=== PATIENT | female | born 1945 | race Caucasian/White ===

== ENCOUNTER → 2023-07-16 07:39 | Outpatient (REF) | payer OTHER, SELFPAY | LOC: RAD 07:39 | PROVIDERS: ATTENDING PHYSICIAN Internal Medicine Critical Care Medicine; FAMILY PHYSICIAN Internal Medicine | DX: D86.9 Sarcoidosis, unspecified (principal); R91.8 Other nonspecific abnormal finding of lung field | CPT/HCPCS: 71250 ==

== ENCOUNTER → 2024-04-12 07:53 | Outpatient (REF) | payer OTHER, SELFPAY | LOC: WDC 07:53 | PROVIDERS: ATTENDING PHYSICIAN Family Medicine | DX: I35.8 Other nonrheumatic aortic valve disorders (principal); Z12.31 Encounter for screening mammogram for malignant neoplasm of breast | CPT/HCPCS: 93306 ==

== ENCOUNTER → 2024-08-21 11:31 | Outpatient (REF) | payer OTHER, SELFPAY | LOC: RAD 11:31 | PROVIDERS: ATTENDING PHYSICIAN Family Medicine | DX: R10.30 Lower abdominal pain, unspecified (principal); R19.7 Diarrhea, unspecified; Z86.16 Personal history of COVID-19 | CPT/HCPCS: 74177; Q9967 ==

== ENCOUNTER 2025-05-23 20:22 | Inpatient (IN) | payer OTHER, SELFPAY ==
[2025-05-23] VITALS (10 sets, daily range): BP systolic 118–162; BP diastolic 54–106; BMI 27.8; BMI 24.9
--- NOTE | 2025-05-23 17:16 | ED.GENMED ---
History of Present Illness
General
Chief Complaint: Fall
Source: patient
Exam Limitations: none
Time Seen by Provider: 05/23/25 16:41
Nursing documentation reviewed up to this point in time: agreed with
History of Present Illness
History of Present Illness:
Patient is a 79-year-old female with history hypertension who presents to the emergency department for evaluation following fall. Patient states that she was walking into her home tonight carrying multiple bags of groceries when she fell backwards
onto her left hip. She is adamant that she did not strike her head or lose consciousness. She did not feel lightheaded, dizzy, or faint prior to fall.
Fortunately, patient was able to get herself up and into the house where she put her groceries away. However�she reports significant pain in her left hip and difficulty ambulating. She contacted her friends who called [phone] for transportation to the
emergency department.
Patient denies any numbness/tingling in left lower extremity. She specifically denies any headache, neck pain, back pain, pain in upper extremities.
She is not on any oral anticoagulation.
Past History
Past History
ED Past Medical History: GERD, HTN and Other (Kidney stones, vasciulitis); Negative CHF or CVA
ED Past Surgical History: Other (s/p partial colectomy for 'twisted bowel' october 2015 w/ Dr Olivares)
Social History
Tobacco: Non-smoker
Alcohol: None
Drug: None
Living: with family (friend)
Employment: Retired
Family History
Family History: Negative CAD
Review of Systems
Review of Systems
Allergies reviewed?: Yes
All Other Systems: ROS reviewed and negative except as documented in HPI and ROS
Phy Exam
Physical Exam
Physical Exam:
Vitals: Hypertensive, otherwise vital signs stable. Afebrile
General: Patient is well appearing, no acute distress. No evidence of traumatic injury.
Skin: Warm and dry, no rashes or lesions
Head: Normocephalic, atraumatic. No external evidence of trauma
Eyes: Sclera nonicteric. EOMs intact. No nystagmus.
Throat: Protecting airway
Neck: Normal ROM, no cervical spine tenderness, no meningismus
Cardiac: Regular rate and rhythm, no murmurs.
Pulm: Normal respiratory effort. Lungs clear bilaterally
.
Abdomen: No abdominal tenderness.
Extremities: No obvious deformity of left lower extremity. Reproducible tenderness in left inguinal region/left hip. No bony tenderness of left knee or left ankle. Limited internal/external rotation of left hip secondary to pain.
Neuro: AAOx3. Grossly intact.
Psychiatric: Normal affect.
Course
Orders/Labs/Results
Orders:
Orders
05/23/25 Breakfast
Regular
At Your Request: Full Participation
05/23/25 15:20
Hip, Left 2-3 Views [CR Hip - LT w/wo Pel 2-3 Vw*] Urgent
Comment:
Reason For Exam: fall
Include a pelvis x-ray?: Yes
05/23/25 18:28
Morphine Sulfate 2 mg IV NOW STA
05/23/25 18:36
Lower Ext Left wo Contrast CT [CT Lower Ext W/o Iv Cont Lt] Urgent
Comment: per ortho
Reason For Exam: Left femoral neck fracture
05/23/25 18:43
Basic Metabolic Panel Urgent
Complete Blood Count/With Diff Urgent
05/23/25 19:39
CXR Port [CR Chest Portable - 1 View] Urgent
Comment:
Reason For Exam: Pre-op, Hypoxemia
Reason Study Needs to be Portable: Unable to Transport
05/23/25 19:40
Admit/Transfer Patient As Directed
Co-Sign Provider:
Level of Care: Inpatient admission
Assign to:: Medical/Surgical
Physician / Group: Luis Felipe
Diagnosis: L Hip Fracture
Reason for Hospitalization: L Hip Fracture
Expected length of stay greater than two midnights?: Yes
ELOS- Estimated Length of Stay in days: 3
I certify the patient meets the requirements for IP care: Yes
PRN Pain Medication Management As Directed
May give lesser potent ordered pain med per pt: Yes
preference::
Protocol:: Medication orders for pain may be administered in a
manner that supports deferring to patient preference
when the pt is:
- Requesting an ordered lesser potent pain medication.
Least to most potent pain medications are defined
as: acetaminophen < NSAID < tramadol < opioids
(morphine, oxycodone, hydromorphone).
- Requesting a lesser dose of the same medication IF
ORDERED.
- Requesting a less intrusive route of administration
if both routes are prescribed by the provider (PO <
IV).
05/23/25 19:41
Code Status As Directed
Resuscitation Status: Full Code
05/23/25 20:47
Urinalysis Reflex To Culture Urgent
Date Specimen was Collected: 05/23/25
Time Specimen was Collected: 20:19
Urine Microscopic Reflex Cult Urgent
05/23/25 21:54
Albuterol Nebs [Ventolin Nebules] 2.5 mg INH R Q4HPRN PRN
HYDROmorphone [Dilaudid] 0.5 mg IV Q4HPRN PRN
05/23/25 21:54
ORTHOPEDIC CONSULT Routine
Consulting Provider: Cortney Irizarry I.
Was physician already notified: Yes
Reason for consult: L Hip Fracture
Activity As Directed
Activity Level: Bedrest
Bladder Scan As Directed
Follow Bladder Retention/Intermittent Cath Algorithm?: Yes
PRN if no void in __ hours: 6
Frequency: Per Retention Algorithm
If Bladder Scan Result >: 400
then:: Straight cath
I/O [Intake/ Output] As Directed
Frequency: Per unit guidelines
Pneumatic Compression Sleeves As Directed
Type: Knee high
Straight Cath As Directed
Frequency: Per Retention Algorithm
Additional Instructions: straight cath as needed per acute urinary retention algorithm for 24 hrs
Additional Instructions: for bladder scan greater than 400 mL
Vital Signs As Directed
Frequency: Per unit guidelines
Oxygen Therapy [O2 Therapy] [RESP] Routine
Titrate/Wean O2 to maintain O2 sat greater than (%): 94
DX Deep Vein Thrombosis Video Routine
05/23/25 22:00
Acetaminophen [Tylenol] 1,000 mg PO TID
05/24/25 Breakfast
NPO
Allow oral meds: Yes
Allow clear liquids: Sips of Clears
NPO for procedure after (time): Midnight
05/24/25 06:35
Basic Metabolic Panel IN AM
Complete Blood Count/No Diff IN AM
05/24/25 08:00
Cholecalciferol (Vitamin D3) [VITAMIN D3 (cholecalciferol)] 25 mcg PO DAILY
Losartan [Cozaar] 50 mg PO DAILY
Venlafaxine Extended Release [Effexor Xr] 37.5 mg PO DAILY
05/24/25 18:00
Bisoprolol Fumarate [Zebeta] 10 mg PO QPM
Abnormal Lab Results
05/23/25
18:43
WBC 16.7 H 10^3/uL
(4.8-10.8)
Abs Immat Gran (auto) 0.1 H 10^3/uL
(0-0.05)
Absolute Neuts (auto) 14.5 H 10^3/uL
(1.4-6.5)
Absolute Lymphs (auto) 1.1 L 10^3/uL
(1.2-3.4)
Absolute Monos (auto) 0.8 H 10^3/uL
(0.1-0.6)
Neutrophils % 87.3 H %
(42.2-75.2)
Lymphocytes % 6.8 L %
(20.5-51.1)
BUN 22 H mg/dl
(7-17)
Glucose 117 H mg/dl
(70-99)
05/23/25 18:43
05/23/25 18:43
Vital Signs
Initial and Last Documented VS:
Initial Vital Signs
Temp Pulse Resp BP Pulse Ox
98.3 F 65 16 130/99 94
05/23/25 15:16 05/23/25 15:16 05/23/25 15:16 05/23/25 15:16 05/23/25 15:16
Last Documented Vital Signs
Temp Pulse Resp BP Pulse Ox
99.1 F 68 16 134/58 91
05/24/25 07:00 05/24/25 07:53 05/24/25 07:00 05/24/25 07:53 05/24/25 07:00
MDM/Problems Addressed
Differential Diagnosis Includes:
Not limited to: Hip fracture, pelvic fracture, hip dislocation, pelvic contusion, femur fracture, etc.
MDM/Problems Addressed:
79 year old female with left hip fracture following fall this evening. No concerning prodrome to fall - seems mechanical in nature. No head strike or other associated injuries. Vitals as above. On exam - patient appears well in no distress. No
evidence of head or neck trauma. General tenderness in area of left hip/ left inguinal crease without obvious deformity of LLE.
Xray of left hip reveals femoral neck fracture. Discussed with orthopedics, Dr Irizarry, who recommends admission to hospitalist service, NPO at midnight for OR tomorrow. Plan discussed with patient. All questions answered.
Patient accepted to hospitalist service. Basic labs pending.
Chronic conditions affecting care:
Hypertension
Acute Exacerbation and/or Progression of Chronic Illness:
Acutely hypertensive
*Radiology
Radiology exam reviewed: preliminary read by ED provider (Left hip x-ray reviewed by me-femoral neck fracture) and radiology read reviewed
*Pulse Oximetry
SaO2: 94
Oxygen Mode of Delivery: Room air
Patient hypoxic: no
*EKG
Interpreted by ED Provider?: NA
*Dicer Operator Interpretation
Rate: Dicer Operator- N/A
*Critical Care Note
Total Time (30-74mins, 75-104mins- exclusive of procedures): Not Applicable
Patient Management
Discussion with other providers: Hospitalist and Research Tech (Case discussed with orthopedics)
ED Attending Note
-
Portions of this chart may have been created with voice recognition software.� Occasional wrong word or��sound alike� substitutions may have occurred due to the inherent limitations of voice recognition software.
Discharge Plan
Departure
Patient Disposition: Admit
Date of Disposition: 05/23/25
Time of Disposition: 18:29
Presentation/result/management discussed w/ accepting MD/DO: Hospitalist
Discharge Problem:
Fracture of left hip
Interventions
Interventions:
*Risk Screen - Suicide Last Done: 05/23/25 15:16
*General Assessment Last Done: 05/23/25 15:16
*Neglect/Abuse Screening Last Done: 05/23/25 15:16
*ED COVID-19 Vaccine History Last Done: 05/23/25 21:05
*ED Influenza Vaccine History Last Done: 05/23/25 21:05
[facility] Fall Risk Assessment Tool Last Done: 05/23/25 18:09
*Nursing Disposition Last Done: 05/23/25 21:16
ED-Musculoskeletal Assessment Last Done: 05/23/25 21:07
ED- Neurological Assessment Last Done: 05/23/25 21:07
ED-Skin Assessment Last Done: 05/23/25 21:07
Discharge Date and Time
Discharge Date/Time: 05/23/25 21:17
[2025-05-23] MEDS: MORPHINE SULFATE 2 MG IV (18:48)
[2025-05-23 18:50] LABS: Hematocrit 45.8 % (37.0-47.0); Hemoglobin 15.1 g/dL (12.0-16.0); Mean Corp Hgb Conc. 33.0 g/dL (33.0-37.0); Mean Corpuscular Volume 92.2 fL (81.0-99.0); Nucleated Red Blood Cells % 0 %; Platelet Count 267 10^3/uL (130-400); Red Cell Dist. Width 12.3 % (11.5-14.5)
[2025-05-23 19:08] LABS: Blood Urea Nitrogen 22 mg/dl (7-17); Calcium 9.5 mg/dl (8.4-10.2); Carbon Dioxide 30 mmol/L (22-30); Chloride 101 mmol/L (98-107); Glucose 117 mg/dl (70-99); Potassium 4.0 mmol/L (3.5-5.1); Sodium 136 mmol/L (135-145); eGFR > 60.00
--- NOTE | 2025-05-23 19:44 | HPS.HSE ---
Family Physician
-
Family Physician: INTERVIEWE UNKNOWN - PT NOT
Chief Complaint
-
Fall
History of Present Illness
Patient is a 79y F with PMH significant for hypertension and COPD who presents to ED complaining of L hip pain s/p fall at home. Patient states that she was carrying groceries and her purse this afternoon. She stepped up to enter her apartment
building and fell backwards - landing primarily on her backside. Patient denies any prodrome of lightheadedness, dizziness, chest pain or dyspnea. She denies striking her head or any LOC. She noted immediate pain in the L hip / groin after the
fall.
Patient states that she has been feeling fairly well recently. No fevers / chills, cough, SOB, N/V/D, etc.
She does report recent dysuria for the past 2 days or so.
Medical History
Past Medical History
Past Medical History: Reports Other
Additional Past Medical History:
Hypertension
COPD
Pulmonary Sarcoid
Nephrolithiasis
Depression
IBS / GERD
Rosacea
Skin Cancer
Past Surgical History: Reports Other
Additional Past Surgical History:
Hemicolectomy / Appendectomy (cecal volvulus)
Cataracts
T&A
Cystoscopy / Lithotripsy
Social History
Tobacco: Former Smoker (Quit smoking in 1989. Approx 20 pack years total use.)
Alcohol: None
Drug: None
Family History
Family History: Not pertinent
Allergies / Home Medications
Allergies reflects when Allergies were last updated in [facility].
Home Medications with original date entered in [facility]
Allergy/Medication List:
Allergies
Allergy/AdvReac Type Severity Reaction Status Date / Time
bacitracin (From Neosporin Allergy Rash Verified 05/23/25 15:16
([id number]))
bacitracin zinc (From Allergy Rash Verified 05/23/25 15:16
Neosporin ([id number]))
bupropion HCl (From Allergy Hives Verified 05/23/25 15:16
Wellbutrin)
neomycin sulfate (From Allergy Rash Verified 05/23/25 15:16
Neosporin ([id number]))
polymyxin B (From Neosporin Allergy Rash Verified 05/23/25 15:16
([id number]))
sertraline HCl (From Zoloft) Allergy Hives Verified 05/23/25 15:16
Home Medications
atorvastatin 10 mg tablet 1 tab PO QPM 05/10/20
biotin 10 mg tablet 10 mg PO DAILY 05/10/20
bisoprolol fumarate 10 mg tablet 10 mg PO QPM 05/10/20
calcium 500 mg (as carbonate)-vitamin D3 15 mcg (600 unit) tablet 1 tab PO DAILY 05/10/20
fluticasone propionate 50 mcg/actuation nasal spray,suspension 1 spray intranasal DAILY 05/10/20
hydrochlorothiazide 12.5 mg capsule 12.5 mg PO DAILY 05/10/20
albuterol sulfate 90 mcg/actuation aerosol inhaler 2 puff inhalation R TIDPRN PRN sob 05/23/25
ascorbic acid (vitamin C) 1,000 mg tablet 1,000 mg PO DAILY 05/23/25
calcium carbonate (Tums) 200 mg PO DAILYPRN PRN acid stomach 05/23/25
cholecalciferol (vitamin D3) 25 mcg (1,000 unit) tablet 25 mcg PO DAILY 05/23/25
guar gum 1 tbsp PO BID 05/23/25
olmesartan 20 mg tablet 20 mg PO DAILY 05/23/25
venlafaxine 37.5 mg capsule,extended release 24 hr 37.5 mg PO DAILY 05/23/25
Review of Systems
-
History Source: Patient
A 12 point ROS was completed and negative except as noted: Yes
Constitutional: Denies Fever or Chills
Respiratory: Denies Cough or Trouble Breathing
Cardiac: Denies Chest Pain or Palpitations
Abdomen/GI: Denies Abdominal Pain, Nausea, Vomiting or Diarrhea
: Reports Dysuria; Denies Frequency or Flank Pain
Musculoskeletal: Reports Joint Pain; Denies Edema
Neurological: Denies Dizzy, Headache, Weakness or Numbness
Psych: Denies Depression or Anxiety
Physical Exam
Vital Signs
Vital Signs
Temp Pulse Resp BP Pulse Ox
98.3 F 72 15 162/59 94
05/23/25 15:16 05/23/25 19:30 05/23/25 19:30 05/23/25 19:00 05/23/25 19:30
Physical Exam
General: Other (79y F in no acute distress.)
HEENT: Moist mucous membranes and PERRLA
Respiratory: Clear; No Wheezes, Rales or Rhonchi
Cardiac: S1/S2 and Regular Rhythm; No Murmur
GI: Soft, Non Tender, Non Distended and Normal Bowel Sounds
Musculoskeletal: No Clubbing, No Cyanosis, No Edema and Other (LLE externally rotated. Lengths fairly equal.)
Neuro: AO x 3
Laboratory Results
-
05/23/25 18:43
05/23/25 18:43
Impression/Plan
-
A/P: Patient is a 79y F with PMH significant for hypertension and COPD who presents to ED for evaluation of L hip pain s/p fall at home.
Left Hip Fracture
Fall at Home
- Admit for further evaluation and treatment.
- Supportive care / pain control overnight.
- No suspicious prodrome to fall. No head injury or LOC.
- Tentative plan for OR in AM for repair.
- Patient with no personal history of heart disease, CVA, etc.
- Patient is at average risk for complications compared to an otherwise healthy individual of her age.
- Benefits of planned procedure outweigh potential risks and patient is OK to proceed to OR without additional pre-op evaluation(s).
- Post-op care per Ortho including pain control, PT, DVT prophylaxis, etc.
- Patient states that she already has updated DEXA scheduled for the end of the month.
Benign Hypertension
- Stable. Hold HCTZ acutely.
- Continue bisoprolol and olmesartan with holding parameters.
COPD without Acute Exacerbation
- Stable at present. Only on PRN albuterol which she states she mostly takes in the summer months.
- Monitor SpO2 dalila-operatively.
- Supplemental O2 as needed.
- Continue albuterol PRN.
- Check CXR now for completeness.
Dysuria
- Recent dysuria x 2 days. Check UA / reflex culture.
- Begin abx if indicated.
Depression
- Stable. Continue venlafaxine.
DVT Prophylaxis: SCDs for now. Post-op per Ortho.
Code Status: Full
[2025-05-23 21:07] LABS: Urine Character Clear (Clear)
[2025-05-23 21:15] LABS: Urine Red Blood Cell 0-2 /HPF (0-2); Urine Squamous Cell 0-2 /LPF (Few); Urine White Cell 0-2 /HPF (0-5)
[2025-05-23] MEDS: TYLENOL PO ×2 (22:42→23:09)
[2025-05-23] MEDS: DILAUDID 0.5 MG IV (23:10)
[2025-05-23] MEDS: FLUSH (NSS) 2 FLUSH IV (23:11)
[2025-05-24] VITALS (17 sets, daily range): BP systolic 106–137; BP diastolic 43–71; PULSE 82–98; O2SAT 87
[2025-05-24] MEDS: EFFEXOR XR 37.5 MG PO (07:50)
[2025-05-24] MEDS: TYLENOL 1000 MG PO ×3 (07:50→22:56)
[2025-05-24] MEDS: VITAMIN D3 (cholecalciferol) 25 MCG PO (07:51)
[2025-05-24] MEDS: COZAAR 50 MG PO (07:53)
[2025-05-24] MEDS: DILAUDID 0.5 MG IV (07:54)
[2025-05-24 07:58] LABS: Blood Urea Nitrogen 22 mg/dl (7-17); Calcium 9.2 mg/dl (8.4-10.2); Carbon Dioxide 28 mmol/L (22-30); Chloride 99 mmol/L (98-107); Estimated Creatinine Clearance 43 ml/min; Glucose 107 mg/dl (70-99); Potassium 3.9 mmol/L (3.5-5.1); Sodium 135 mmol/L (135-145); eGFR 57.66
[2025-05-24 08:00] LABS: Hematocrit 42.5 % (37.0-47.0); Hemoglobin 14.3 g/dL (12.0-16.0); Mean Corp Hgb Conc. 33.6 g/dL (33.0-37.0); Mean Corpuscular Volume 92.6 fL (81.0-99.0); Red Cell Dist. Width 12.5 % (11.5-14.5)
--- NOTE | 2025-05-24 08:26 | W.PN.HOSP.TC ---
Today's Communication/Plan
-
OR today.
Pain control.
PT/OT
Assessment / Plan
Assessment / Plan
Impression:
Patient is a 79y F with PMH significant for hypertension and COPD who presents to ED complaining of L hip pain s/p fall at home. Patient states that she was carrying groceries and her purse this afternoon. She stepped up to enter her apartment
building and fell backwards - landing primarily on her backside. Patient denies any prodrome of lightheadedness, dizziness, chest pain or dyspnea. She denies striking her head or any LOC. She noted immediate pain in the L hip / groin after the
fall.
Patient states that she has been feeling fairly well recently. No fevers / chills, cough, SOB, N/V/D, etc.
She does report recent dysuria for the past 2 days or so.
Assessment/plan:
Status post fall with left Hip Fracture
Fall at home. Mechanical fall
Continue bone control.
Seen by orthopedic and plan for OR today 05/24
PT/OT consult postoperative.
Benign Hypertension
Stable
Continue home.
COPD without Acute Exacerbation
Stable at present.
Continue PRN albuterol
Chest x-ray done showed:
1. SEVERE BILATERAL UPPER LOBE CENTRILOBULAR EMPHYSEMA.
2. Mild interstitial (and probably alveolar) cardiogenic pulmonary edema.
3. Severe calcific atherosclerotic plaque in the coronary arteries and thoracic aorta
Dysuria
Negative UA
Depression
Stable
continue venlafaxine.
CODE STATUS: Full code
DVT prophylaxis: SCDs
Diet: NPO
Disposition: OR today.
Pain control.
PT/OT
Total time spent on today's encounter was 65 minutes which included time spent in counseling the patient/family regarding diagnosis and treatment plan as listed above, goals of care, and symptom management. Case was discussed with nursing staff,
specialists, and care coordinators/case management. All labs and imaging personally reviewed by me. Remainder the time spent in detailed review of previous records, lab data, imaging, and other medical provider documentation.
Anticipated Discharge: > 48 hours
Subjective/Interval History
-
Date of Service: May 24, 2025
Patient seen and examined at bedside, patient complaining of left hip pain otherwise denies any chest pain or shortness of breath, no abdominal pain, no nausea, no vomiting, no diarrhea or constipation.
Objective Data
-
Labs:
Laboratory Results
05/24/25
06:35
WBC 12.9 H
Hgb 14.3
Hct 42.5
Plt Count Pending
Sodium 135
Potassium 3.9
Chloride 99
Carbon Dioxide 28
BUN 22 H
Creatinine 1.0
Glucose 107 H
Calcium 9.2
Vital Signs:
Vital Signs
Temp Pulse Resp BP Pulse Ox
98.1 F 68 20 134/58 94
05/23/25 23:49 05/24/25 07:53 05/23/25 23:49 05/24/25 07:53 05/23/25 23:49
Physical Exam
-
General: Well Developed, Well Nourished, No Apparent Distress and Comfortable
HEENT: Normocephalic, Atraumatic, Moist Mucous Membranes, No Ptosis, PERRLA and Nose Appears Normal
Respiratory: Clear to Auscultation and Non Labored Respirations
Cardiac: Regular Rhythm and S1/S2
Breast: Deferred by me
GI: Soft, Nontender, Nondistended and Normal Bowel Sounds
Genito-urinary: No Costovertebral Tender
Musculoskeletal: No Clubbing and Other (Left hip tenderness)
Skin: Warm
Neuro: Awake, Alert, Oriented, AO x 3 and No Motor Deficits
Psych: Calm
Data Reviewed
-
Diagnostic Radiology: Image personally visualized and interpreted and Report Reviewed by me
CT Scan: Image personally visualized and interpreted and Report Reviewed by me
Ultrasound: Image personally visualized and interpreted and Report Reviewed by me
MRI: Image personally visualized and interpreted and Report Reviewed by me
Medical Tests (Nuc Med, Echo etc): Image personally visualized and interpreted and Report Reviewed by me
Labs: Labs Reviewed by me
Old Records: Reviewed
--- NOTE | 2025-05-24 08:43 | CON.ORTHO ---
Consultation
-
Date/Time Consultation Requested: 05/23/25
Date/Time Consultation Performed: 05/24/25
Requesting Provider: Dr. Briscoe
Performing Provider: Leydi Maki PA-C, for Dr. Irizarry
Reason for Consultation: Left femoral neck fracture
Consultation - Orthopedics
History
HPI: Ms. Beck is a 79-year-old female who presented to [facility] emergency department after falling backwards while climbing up a step to carry her groceries inside her house. She had immediate pain and difficulty ambulating. X-rays
taken in the emergency department demonstrated a nondisplaced femoral neck fracture, which was also confirmed with a CT scan. She does live independently in a townhouse and denies use of an assistive device. She denies any numbness or tingling of
her left lower extremity. Pain has been relatively well-controlled with the medication. Our orthopedic specialty was consulted and she discussed definitive management of her left femoral neck fracture.
Medical History
Past Medical History
Past Medical History: Reports Other
Additional Past Medical History:
Hypertension
COPD
Pulmonary Sarcoid
Nephrolithiasis
Depression
IBS / GERD
Rosacea
Skin Cancer
Past Surgical History: Reports Other
Additional Past Surgical History:
Hemicolectomy / Appendectomy (cecal volvulus)
Cataracts
T&A
Cystoscopy / Lithotripsy
Social History
Tobacco: Former Smoker (Quit smoking in 1989. Approx 20 pack years total use.)
Alcohol: None
Drug: None
Lives alone in town home with stairs
Family History
Family History: Not pertinent
Review of systems
All systems reviewed and negative except for those mentioned in HPI.
Allergies / Home Medications
Allergy/AdvReac Type Severity Reaction Status Date / Time
bacitracin (From Neosporin Allergy Rash Verified 05/23/25 15:16
([id number]))
bacitracin zinc (From Allergy Rash Verified 05/23/25 15:16
Neosporin ([id number]))
bupropion HCl (From Allergy Hives Verified 05/23/25 15:16
Wellbutrin)
neomycin sulfate (From Allergy Rash Verified 05/23/25 15:16
Neosporin ([id number]))
polymyxin B (From Neosporin Allergy Rash Verified 05/23/25 15:16
([id number]))
sertraline HCl (From Zoloft) Allergy Hives Verified 05/23/25 15:16
�Medication �Instructions �Recorded
atorvastatin 10 mg tablet 1 tab PO QPM 05/10/20
biotin 10 mg tablet 10 mg PO DAILY 05/10/20
bisoprolol fumarate 10 mg tablet 10 mg PO QPM 05/10/20
calcium 500 mg (as 1 tab PO DAILY 05/10/20
carbonate)-vitamin D3 15 mcg (600
unit) tablet
fluticasone propionate 50 1 spray intranasal DAILY 05/10/20
mcg/actuation nasal
spray,suspension
hydrochlorothiazide 12.5 mg capsule 12.5 mg PO DAILY 05/10/20
albuterol sulfate 90 mcg/actuation 2 puff inhalation R TIDPRN PRN sob 05/23/25
aerosol inhaler
ascorbic acid (vitamin C) 1,000 mg 1,000 mg PO DAILY 05/23/25
tablet
calcium carbonate (Tums) 200 mg PO DAILYPRN PRN acid stomach 05/23/25
cholecalciferol (vitamin D3) 25 25 mcg PO DAILY 05/23/25
mcg (1,000 unit) tablet
guar gum 1 tbsp PO BID 05/23/25
olmesartan 20 mg tablet 20 mg PO DAILY 05/23/25
venlafaxine 37.5 mg 37.5 mg PO DAILY 05/23/25
capsule,extended release 24 hr
Vital Signs / Lab Results
Temp Pulse Resp BP Pulse Ox
99.1 F 68 16 134/58 91
05/24/25 07:00 05/24/25 07:53 05/24/25 07:00 05/24/25 07:53 05/24/25 07:00
05/24/25 06:35
05/24/25 06:35
Physical examination:
General: Well-developed, well-nourished female in no acute distress at rest. AO x 4.
HEENT: Atraumatic, normocephalic, neck supple.
Lungs: Nonlabored breathing on room air. No audible wheezing.
Heart: Regular rate and rhythm.
Left hip: Mild tenderness palpation about lateral hip. Minimal swelling, no ecchymosis. Logroll positive for pain. Range of motion not tested due to known fracture. Calf soft nontender to palpation. Neurovascular intact distally.
Radiographic studies:
X-rays of the left hip demonstrate a nondisplaced femoral neck fracture.
CT scan of the pelvis confirms nondisplaced nature of the femoral neck fracture
Assessment / Plan
Assessment: Left femoral neck fracture.
Plan: Unfortunately, Ms. Beck sustained a nondisplaced femoral neck fracture during her fall yesterday. Dr. Irizarry was present to evaluate the patient and discussed treatment recommendations going forward. At this time, we recommend proceeding
with a closed reduction, percutaneous pinning of left femoral neck fracture. The procedure was explained in detail along with the associated risk, benefits, and recovery process. Surgical consent was signed and placed in patient's chart. Left hip
was marked as the correct surgical site. She has been n.p.o. since midnight. IV antibiotics on-call to the OR. Postoperatively, she will be partial weightbearing with a walker and participate in physical therapy as soon as she is able. Case
management will be consulted and to discuss discharge planning based on PT recommendations. She will likely require a rehab facility or SNF as she lives alone in a townhouse with many stairs. All questions were answered and patient was in
agreement with treatment recommendations going forward.
--- NOTE | 2025-05-24 10:42 | CM ---
CM reviewed chart. Pt w/L hip fx pending OR today.
Met with pt at bedside. IA partially completed 2/2 transport arriving to take pt to OR.
Explained role and discussed anticipated dc plan/options.
Pt resides alone in a 2story home w/full BB on 2nd full w/FF up. 1 lgoan.
Pt is able to have a 1st fl set up w/MS if needed.
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
Briefly discussed pending PT/OT eval and home w/hc vs [facility].
CM/SW will continue to follow to ensure a safe and timely dc.
[2025-05-24] MEDS: SUBLIMAZE 50 MCG IV (11:17)
[2025-05-24] MEDS: SUBLIMAZE 25 MCG IV (11:39)
[2025-05-24] MEDS: ANCEF 5 IV (17:07)
[2025-05-24] MEDS: ZEBETA 10 MG PO (17:07)
[2025-05-24] MEDS: ASPIRIN 325 MG PO (17:07)
[2025-05-24] MEDS: COLACE 100 MG PO (22:55)
[2025-05-25] VITALS (8 sets, daily range): BP systolic 94–127; BP diastolic 40–58; PULSE 67–70; O2SAT 88–94
[2025-05-25] MEDS: FLUSH (NSS) 1 FLUSH IV (02:47)
[2025-05-25] MEDS: ANCEF 5 IV (02:47)
[2025-05-25] MEDS: ROXICODONE 5 MG PO ×2 (07:56→23:04)
[2025-05-25] MEDS: TYLENOL 1000 MG PO ×3 (07:56→21:40)
[2025-05-25] MEDS: ASPIRIN 325 MG PO (07:56)
[2025-05-25] MEDS: VITAMIN D3 (cholecalciferol) 25 MCG PO (07:56)
[2025-05-25] MEDS: COZAAR 50 MG PO (07:56)
[2025-05-25] MEDS: EFFEXOR XR 37.5 MG PO (07:56)
[2025-05-25] MEDS: COLACE 100 MG PO ×2 (07:56→20:29)
--- NOTE | 2025-05-25 08:07 | W.PN.ORTHO ---
Today's Communication / Plan
-
79F POD 1 L hip CRPP w/ Dr. Irizarry
- Partial weightbearing left lower extremity with assist devices as indicated.
- PT/OT/discharge planning
- Maintain current postop dressing for at least 7 days and then may remove. Okay to shower.
- Diet, DVT PPx, and pain regimen per primary
- Outpatient follow-up in 4 weeks from date of surgery with Dr. Irizarry for radiographs and clinical exam. Orthopedic surgery will continue to follow
Assessment
.
Distal Motor Intact: Yes
Dressing:
Clean, dry and intact. Mild central saturation
Plan
.
Surgery / Date: Left hip CRPP 05/24/25 w/ Dr. Irizarry
Activity:
Out of bed.
PT/OT
Subjective
.
.:
Patient resting comfortably.
Vital Signs and Labs
.
Vital Signs and Labs:
Temp Pulse Resp BP Pulse Ox
98.6 F 65 17 125/52 95
05/25/25 03:04 05/25/25 07:56 05/25/25 03:04 05/25/25 07:56 05/25/25 03:04
[2025-05-25 08:12] LABS: Blood Urea Nitrogen 27 mg/dl (7-17); Calcium 9.4 mg/dl (8.4-10.2); Carbon Dioxide 26 mmol/L (22-30); Chloride 100 mmol/L (98-107); Estimated Creatinine Clearance 43 ml/min; Glucose 96 mg/dl (70-99); Potassium 3.9 mmol/L (3.5-5.1); Sodium 138 mmol/L (135-145); eGFR 57.66
[2025-05-25 08:16] LABS: Hematocrit 44.9 % (37.0-47.0); Hemoglobin 14.6 g/dL (12.0-16.0); Mean Corp Hgb Conc. 32.5 g/dL (33.0-37.0); Mean Corpuscular Volume 95.1 fL (81.0-99.0); Platelet Count 245 10^3/uL (130-400); Red Cell Dist. Width 12.4 % (11.5-14.5)
--- NOTE | 2025-05-25 08:33 | W.PN.HOSP.TC ---
Today's Communication/Plan
-
dispo planning for SNF
Assessment / Plan
Assessment / Plan
Impression:
Patient is a 79y F with PMH significant for hypertension and COPD who presents to ED complaining of L hip pain s/p fall at home. Patient states that she was carrying groceries and her purse this afternoon. She stepped up to enter her apartment
building and fell backwards - landing primarily on her backside. Patient denies any prodrome of lightheadedness, dizziness, chest pain or dyspnea. She denies striking her head or any LOC. She noted immediate pain in the L hip / groin after the
fall.
Patient states that she has been feeling fairly well recently. No fevers / chills, cough, SOB, N/V/D, etc.
She does report recent dysuria for the past 2 days or so.
OR 05/24
POSTOP DIAGNOSIS: Nondisplaced left femoral neck fracture.
PROCEDURE: Cannulated screw fixation, left femoral neck fracture.
Assessment/plan:
Status post fall with left Hip Fracture
Fall at home. Mechanical fall
pain control
Appreciate Ortho; s/p OR 05/24 with cannulated screw fixation of left femoral neck fracture
PT/OT consult postoperative --> SNF recommended; updated CM
ASA 325 for DVT PPx
Maintain current postop dressing for at least 7 days and then may remove. Okay to shower.
Outpatient follow-up in 4 weeks from date of surgery with Dr. Irizarry for radiographs and clinical exam
Benign Hypertension
Stable
Continue home meds
COPD without Acute Exacerbation
Stable at present.
Continue PRN albuterol
Chest x-ray done showed:
1. SEVERE BILATERAL UPPER LOBE CENTRILOBULAR EMPHYSEMA.
2. Mild interstitial (and probably alveolar) cardiogenic pulmonary edema.
3. Severe calcific atherosclerotic plaque in the coronary arteries and thoracic aorta
Dysuria
Negative UA
Depression
Stable
continue venlafaxine.
CODE STATUS: Full code
DVT prophylaxis:
Disposition: OR today.
Pain control.
PT/OT
Total time spent on today's encounter was 65 minutes which included time spent in counseling the patient/family regarding diagnosis and treatment plan as listed above, goals of care, and symptom management. Case was discussed with nursing staff,
specialists, and care coordinators/case management. All labs and imaging personally reviewed by me. Remainder the time spent in detailed review of previous records, lab data, imaging, and other medical provider documentation.
Anticipated Discharge: Within 24 hours
Subjective/Interval History
-
Date of Service: May 25, 2025
overall feeling well
walked to bathroom this morning
mild pain
no swelling
no chest brayan
Objective Data
-
Labs:
Laboratory Results
05/25/25
06:53
WBC 17.0 H
Hgb 14.6
Hct 44.9
Plt Count 245
Sodium 138
Potassium 3.9
Chloride 100
Carbon Dioxide 26
BUN 27 H
Creatinine 1.0
Glucose 96
Calcium 9.4
Vital Signs:
Vital Signs
Temp Pulse Resp BP Pulse Ox
98.1 F 65 18 125/52 94
05/25/25 07:50 05/25/25 07:56 05/25/25 07:50 05/25/25 07:56 05/25/25 07:50
I&O
05/24/25 05/25/25 05/26/25
06:59 06:59 06:59
Intake Total 1170 / 1170
Balance 1170 / 1170
Review of Systems
-
History Source: Patient
All other systems: Reviewed and negative
Physical Exam
-
General: Well Developed, Well Nourished, No Apparent Distress and Comfortable
HEENT: Normocephalic, Atraumatic, Moist Mucous Membranes, No Ptosis, PERRLA and Nose Appears Normal
Respiratory: Clear to Auscultation and Non Labored Respirations
Cardiac: Regular Rhythm and S1/S2
Breast: Deferred by me
GI: Soft, Nontender, Nondistended and Normal Bowel Sounds
Genito-urinary: No Costovertebral Tender
Musculoskeletal: No Clubbing and No Edema
Skin: Warm
Neuro: Awake, Alert, Oriented, AO x 3 and No Motor Deficits
Psych: Calm
Data Reviewed
-
Diagnostic Radiology: Report Reviewed by me
Labs: Labs Reviewed by me
[2025-05-25 11:03] LABS: Vitamin D, 25-OH*** 40.3 ng/mL (30-80)
--- NOTE | 2025-05-25 11:35 | CM ---
Addendum entered by Tomasa Hicks 05/25/25 16:42:
Authorization submitted; approval pending
Addendum entered by Tomasa Hicks 05/25/25 13:38:
IMM benefit explained; form signed @ [id number]
Addendum entered by Tomasa Hicks 05/25/25 13:30:
Met with patient at bedside; [facility] referrals were identified for patient; her preference is [facility] NPI # [id number]
Provider, Danielito Lyle, NPI# [id number] (address: [address] [place], [place] [address]jose Lindsay, [place], [place])
Per Attending, patient will discharge tomorrow
Plan: Discharge to [facility] pending auth approval tomorrow; will need ambulance transport
Report # [phone], [phone]

Original Note:
SNF recommended; patient agreeable; [facility] not an option for her per Attending
Referrals sent via [facility]
Plan: Discharge to SNF pending bed available and Authorization approved
--- NOTE | 2025-05-25 15:38 | W.DCSUMMARY ---
Discharge Summary
Discharge Data
Date of Admission: 05/23/25
Date of Discharge: 05/26/25
-
Pending Results: No
Hospital Course
Discharging Physician : Dr. Dena Zavala
Disposition : SNF
Primary care physician :
Principal Discharge diagnosis : Left femoral neck fracture
Hospital Course :
Ms. Lila Beck is a 79 yo woman with hx essential HTN, COPD presents to the ER after a fall resulting in left hip pain. Vitals significant for hypertension, labs with leukocytosis. Imaging with acute nondisplaced subcapital fracture of the left
femoral neck. Patient was admitted to medicine with Orthopedics consulting. She underwent surgery on 05/24/25. Patient did well post-op and will be discharged to SNF.
She is prescribed Asa 325mg daily for DVT PPx. Dressing to remain on for 7 days, OK to shower. She should follow up with Dr. Irizarry in 4 weeks.
Patient had mild hypoxemia requiring 2L at DC. She is ordered for incentive spirometry, suspect atelectasis contributing. She also has 'severe bilateral upper lobe centrilobular emphysema' seen on CXR. She has been on Albuterol PRN, no long
acting inhalers prior to admission. I have prescribed Symbicort for now and encourage patient to follow up with her Fire Watchman, Dr. Menezes, soon after discharge from SNF.
Time spent on discharge was 32 minutes.
Important imaging findings :
Hip X-Ray 05/23/25
IMPRESSION:
Acute subcapital left hip fracture. No significant displacement.
Mild bilateral hip osteoarthritis.
Lower Extremity CT 05/23/25
IMPRESSION:
1. ACUTE NONDISPLACED SUBCAPITAL FRACTURE of the LEFT FEMORAL NECK.
2. Severe discogenic degenerative disease at L5/S1.
CXR
IMPRESSION:
1. SEVERE BILATERAL UPPER LOBE CENTRILOBULAR EMPHYSEMA.
2. Mild interstitial (and probably alveolar) cardiogenic pulmonary edema.
3. Severe calcific atherosclerotic plaque in the coronary arteries and thoracic aorta.
Procedure findings :
05/24/25
PREOP DIAGNOSIS: Nondisplaced left femoral neck fracture.
POSTOP DIAGNOSIS: Nondisplaced left femoral neck fracture.
PROCEDURE: Cannulated screw fixation, left femoral neck fracture.
Discharge Plan
-
Patient Disposition: [facility]
Discharge Diagnosis/Procedures: Left Femoral Neck Fracture status post cannulated screw fixation 05/24/25
Diet: Regular
Activity: As tolerated
Driving Restrictions: No driving
Bathing Restrictions: None
Other Services: PT and OT
Wound Care: Maintain post-op dressing for at least 7 days then OK to remove. OK to shower.
Referrals:
Cortney Irizarry I., [Active, Orthopedics] - in three to four weeks
Kt Norris MD [Active, Pulmonary Medicine] - in two to four weeks
UNKNOWN - PT NOT,INTERVIEWE [Family Provider]
Additional Discharge Medication Instructions: Please follow up with your PCP after rehab
Take Aspirin x 4 weeks to prevent blood clots post surgery
You are prescribed Tylenol 1G 3x/day for one week then can take as needed
Take Oxycodone as needed for severe pain
Continue Colace and take Miralax as needed for constipation.
You are started on Symbicort for treatment of COPD. Please follow up with Dr. Menezes who may adjust therapy.
Prescriptions:
New
aspirin 325 mg Tablet
325 mg PO DAILY Qty: 28 0RF
docusate sodium 100 mg Capsule
100 mg PO BID Qty: 14 0RF
acetaminophen [Tylenol Extra Strength] 500 mg Tablet
1,000 mg PO TID Qty: 42 0RF
Rx Instructions:
Take 1G 3 times per day for one week then as needed
oxycodone 5 mg Tablet
5 mg PO Q4HPRN PRN (Reason: severe pain) Qty: 15 0RF
polyethylene glycol 3350 [Miralax] 17 gram powder in packet
17 g PO DAILY PRN (Reason: Constipation) Qty: 30 0RF
budesonide-formoterol [Symbicort] 80-4.5 mcg/actuation Hfa Aerosol Inhaler
2 puff inhalation R BID Qty: 10.2 0RF
Continued
biotin 10 MG tablet
10 mg PO DAILY
atorvastatin 10 MG tablet
1 tab PO QPM
bisoprolol fumarate 10 MG tablet
10 mg PO QPM
hydrochlorothiazide 12.5 MG capsule
12.5 mg PO DAILY
fluticasone propionate 1 SPRAY spray,suspension
1 spray intranasal DAILY
calcium carbonate-vitamin D3 1 EACH tablet
1 tab PO DAILY
ascorbic acid (vitamin C) 1,000 mg Tablet
1,000 mg PO DAILY
venlafaxine 37.5 mg capsule,extended release 24hr
37.5 mg PO DAILY
guar gum Packet
1 tbsp PO BID
calcium carbonate [Tums] 200 mg calcium (500 mg) Tablet,Chewable
200 mg PO DAILYPRN PRN (Reason: acid stomach)
albuterol sulfate 90 mcg/actuation Hfa Aerosol Inhaler
2 puff INHALATION R TIDPRN PRN (Reason: sob)
olmesartan 20 mg tablet
20 mg PO DAILY
cholecalciferol (vitamin D3) 25 mcg (1,000 unit) Tablet
25 mcg PO DAILY
Discharge Orders:
Discharge Patient (As Directed); Ordered 05/26/25
Ordered By: Dena Zavala
Discharge Date and Time
Discharge Date/Time: 05/26/25 14:23
Print Language: NIGERIEN
[2025-05-25] MEDS: ZEBETA PO (17:35)
--- NOTE | 2025-05-26 06:14 | W.PN.ORTHO ---
Today's Communication / Plan
-
79F POD 2 L hip CRPP with Dr. Irizarry
- Partial weightbearing x 4 weeks with assistive devices as indicated
- PT/OT/discharge planning
- Maintain dressing for 7 days then may remove.
- ASA 325 mg once daily x 4 weeks for DVT prophylaxis
- Diet and pain regimen per primary team
Outpatient follow up 4 weeks date of surgery with Dr. Urrutia for clinical exam and radiographs. Orthopedic surgery will sign off at this time. Please reengage with any further questions or concerns.
Assessment
.
Distal Motor Intact: Yes
Dressing:
Clean, dry and intact. Scant central saturation of bandage; appears stable.
Assessment:
POD #2 L Hip CRPP 05/24/[address] Irizarry.
Plan
.
Surgery / Date: Left hip CRPP 05/24/25 w/ Dr. Irizarry
DVT Prophylaxis: Aspirin
Activity:
Out of bed.
PT/OT
Discharge Plan: SNF
Discharge Information:
Appreciate CM.
Subjective
.
.:
Patient resting comfortably.
Vital Signs and Labs
.
Vital Signs and Labs:
Temp Pulse Resp BP Pulse Ox
98.2 F 65 17 94/58 96
05/25/25 23:20 05/25/25 23:20 05/25/25 23:20 05/25/25 23:20 05/25/25 23:20
[2025-05-26 07:50] VITALS: BP 144/60
[2025-05-26] MEDS: TYLENOL 1000 MG PO (08:19)
[2025-05-26] MEDS: VITAMIN D3 (cholecalciferol) 25 MCG PO (08:19)
[2025-05-26] MEDS: ASPIRIN 325 MG PO (08:19)
[2025-05-26] MEDS: COZAAR 50 MG PO (08:19)
[2025-05-26] MEDS: COLACE 100 MG PO (08:19)
[2025-05-26] MEDS: EFFEXOR XR 37.5 MG PO (08:19)
[2025-05-26 08:24] LABS: Hematocrit 39.2 % (37.0-47.0); Hemoglobin 13.1 g/dL (12.0-16.0); Mean Corp Hgb Conc. 33.4 g/dL (33.0-37.0); Mean Corpuscular Volume 93.6 fL (81.0-99.0); Platelet Count 211 10^3/uL (130-400); Red Cell Dist. Width 12.7 % (11.5-14.5)
[2025-05-26 08:45] LABS: Blood Urea Nitrogen 29 mg/dl (7-17); Calcium 8.8 mg/dl (8.4-10.2); Carbon Dioxide 25 mmol/L (22-30); Chloride 104 mmol/L (98-107); Estimated Creatinine Clearance 48 ml/min; Glucose 120 mg/dl (70-99); Magnesium 2.0 mg/dl (1.6-2.3); Potassium 4.3 mmol/L (3.5-5.1); Sodium 136 mmol/L (135-145); eGFR > 60.00
--- NOTE | 2025-05-26 09:21 | W.PN.HOSP.TC ---
Today's Communication/Plan
-
plan for DC to SNF today
Assessment / Plan
Assessment / Plan
Impression:
Patient is a 79y F with PMH significant for hypertension and COPD who presents to ED complaining of L hip pain s/p fall at home. Patient states that she was carrying groceries and her purse this afternoon. She stepped up to enter her apartment
building and fell backwards - landing primarily on her backside. Patient denies any prodrome of lightheadedness, dizziness, chest pain or dyspnea. She denies striking her head or any LOC. She noted immediate pain in the L hip / groin after the
fall.
Patient states that she has been feeling fairly well recently. No fevers / chills, cough, SOB, N/V/D, etc.
She does report recent dysuria for the past 2 days or so.
OR 05/24
POSTOP DIAGNOSIS: Nondisplaced left femoral neck fracture.
PROCEDURE: Cannulated screw fixation, left femoral neck fracture.
Assessment/plan:
Status post fall with left Hip Fracture
Fall at home. Mechanical fall
pain control
Appreciate Ortho; s/p OR 05/24 with cannulated screw fixation of left femoral neck fracture
PT/OT consult postoperative --> SNF recommended; updated CM
ASA 325 for DVT PPx
Maintain current postop dressing for at least 7 days and then may remove. Okay to shower.
Outpatient follow-up in 4 weeks from date of surgery with Dr. Irizarry for radiographs and clinical exam
Benign Hypertension
Stable
Continue home meds
COPD without Acute Exacerbation
Stable at present.
Continue PRN albuterol
Chest x-ray done showed:
1. SEVERE BILATERAL UPPER LOBE CENTRILOBULAR EMPHYSEMA.
2. Mild interstitial (and probably alveolar) cardiogenic pulmonary edema.
3. Severe calcific atherosclerotic plaque in the coronary arteries and thoracic aorta
Mild hypoxic respiratory insufficiency
-she is on 2L with CXR showing e/o emphysema; she is only on albuterol PRN at home - consider initiation long acting inhaler
-continue incentive spirometry
-patient does not appear overloaded on exam
Dysuria
Negative UA
Depression
Stable
continue venlafaxine.
CODE STATUS: Full code
DVT prophylaxis:
Disposition: OR today.
Pain control.
PT/OT
Total time spent on today's encounter was 65 minutes which included time spent in counseling the patient/family regarding diagnosis and treatment plan as listed above, goals of care, and symptom management. Case was discussed with nursing staff,
specialists, and care coordinators/case management. All labs and imaging personally reviewed by me. Remainder the time spent in detailed review of previous records, lab data, imaging, and other medical provider documentation.
Anticipated Discharge: Today
Subjective/Interval History
-
Date of Service: May 26, 2025
overall feeling well
feels ready for DC to SNF
Objective Data
-
Labs:
Laboratory Results
05/26/25
07:50
WBC 12.4 H
Hgb 13.1
Hct 39.2
Plt Count 211
Sodium 136
Potassium 4.3
Chloride 104
Carbon Dioxide 25
BUN 29 H
Creatinine 0.9
Glucose 120 H
Calcium 8.8
Vital Signs:
Vital Signs
Temp Pulse Resp BP Pulse Ox
99.4 F 88 17 149/60 91
05/26/25 07:50 05/26/25 08:19 05/26/25 07:50 05/26/25 08:19 05/26/25 07:50
I&O
05/25/25 05/26/25 05/27/25
06:59 06:59 06:59
Intake Total 1170 / 1170 660 / 660
Balance 1170 / 1170 660 / 660
Review of Systems
-
History Source: Patient
All other systems: Reviewed and negative
Physical Exam
-
General: Well Developed, Well Nourished, No Apparent Distress and Comfortable
HEENT: Normocephalic, Atraumatic, Moist Mucous Membranes, No Ptosis, PERRLA and Nose Appears Normal
Respiratory: Clear to Auscultation and Non Labored Respirations
Cardiac: Regular Rhythm and S1/S2
Breast: Deferred by me
GI: Soft, Nontender, Nondistended and Normal Bowel Sounds
Genito-urinary: No Costovertebral Tender
Musculoskeletal: No Clubbing and No Edema
Skin: Warm
Neuro: Awake, Alert, Oriented, AO x 3 and No Motor Deficits
Psych: Calm
Data Reviewed
-
Diagnostic Radiology: Report Reviewed by me
Labs: Labs Reviewed by me
--- NOTE | 2025-05-26 09:38 | W.DS.TRANS ---
DC Summary - Location Man
-
Discharge Instructions:
Discharge Diagnosis/Procedures Left Femoral Neck Fracture status post
cannulated screw fixation 05/24/25
Diet Regular
Activity As tolerated
Driving Restrictions No driving
Bathing Restrictions None
Other Services PT,OT
Wound Care Maintain post-op dressing for at least 7 days
then OK to remove. OK to shower.
Instructions:
Stand-Alone Forms:
Changes to Home Medications: Yes
Discharge Medications:
DC Medications w/original date entered in [facility]
atorvastatin 10 mg tablet 1 tab PO QPM High Cholesterol 05/10/20
biotin 10 mg tablet 10 mg PO DAILY Supplement 05/10/20
bisoprolol fumarate 10 mg tablet 10 mg PO QPM Blood Pressure 05/10/20
calcium 500 mg (as carbonate)-vitamin D3 15 mcg (600 unit) tablet 1 tab PO DAILY Supplement 05/10/20
fluticasone propionate 50 mcg/actuation nasal spray,suspension 1 spray intranasal DAILY Allergies 05/10/20
hydrochlorothiazide 12.5 mg capsule 12.5 mg PO DAILY Fluid Retention/Swelling 05/10/20
albuterol sulfate 90 mcg/actuation aerosol inhaler 2 puff inhalation R TIDPRN PRN sob 05/23/25
ascorbic acid (vitamin C) 1,000 mg tablet 1,000 mg PO DAILY Supplement 05/23/25
calcium carbonate (Tums) 200 mg PO DAILYPRN PRN acid stomach 05/23/25
cholecalciferol (vitamin D3) 25 mcg (1,000 unit) tablet 25 mcg PO DAILY Supplement 05/23/25
guar gum 1 tbsp PO BID Supplement 05/23/25
olmesartan 20 mg tablet 20 mg PO DAILY Blood Pressure 05/23/25
venlafaxine 37.5 mg capsule,extended release 24 hr 37.5 mg PO DAILY Mental Health/Anxiety 05/23/25
acetaminophen 500 mg tablet (Tylenol Extra Strength) 1,000 mg (2 x 500 mg) PO TID #42 tabs 05/25/25
aspirin 325 mg tablet 325 mg PO DAILY #28 tabs 05/25/25
docusate sodium 100 mg capsule 100 mg PO BID #14 caps 05/25/25
oxycodone 5 mg tablet 5 mg PO Q4HPRN PRN severe pain #15 tabs 05/25/25
polyethylene glycol 3350 17 gram oral powder packet (Miralax) 17 g PO DAILY PRN Constipation #30 ea 05/25/25
budesonide-formoterol HFA 80 mcg-4.5 mcg/actuation aerosol inhaler (Symbicort) 2 puff inhalation R BID #10.2 grams 05/26/25
Home Medication Changes
Take Aspirin x 4 weeks to prevent blood clots post surgery
You are prescribed Tylenol 1G 3x/day for one week then can take as needed
Take Oxycodone as needed for severe pain
Continue Colace and take Miralax as needed for constipation.
You are started on Symbicort for treatment of COPD. Please follow up with Dr. Menezes who may adjust therapy.
Pending Results: No
--- NOTE | 2025-05-26 10:26 | CM ---
Addendum entered by Venita Hugo 05/26/25 11:32:
Correction to auth dates 05/26-06/01
Original Note:
MAHSA Mays at
Approved 04/26-05/02 NRD 05/02 ref [id number]
Call in for next review at [phone]
Notified Omaira Grace
[2025-05-26] MEDS: ORETIC 12.5 MG PO (11:06)
[2025-05-26] MEDS: MIRALAX 17 GRAMS PO (11:06)
--- NOTE | 2025-05-26 11:32 | CM ---
Addendum entered by Chandrakant Thapa 05/26/25 12:36:
Transport scheduled for 14:00.
Original Note:
Patient has been medically cleared for discharge to [facility]. Insurance auth obtained. Auth # [id number]. Approved from 05/26/25 through to and including 06/01/25. LCD and NRD is 06/01/25. Report for concurrent reviews to
[phone]. Ambulance transport requested. Patient and team notified. Patient will contact primary contact.
Nurse to Nurse Report #: [phone], [id number]
Fax #: [phone]
[2025-05-26 14:18] VITALS: BP 129/54
== END 2025-05-26 14:23 | DRG 482 ==
LOC: 2 SOUTH 20:22
PROVIDERS: General Practice; Physician Assistant; ADMITTING PHYSICIAN Hospitalist; ATTENDING PHYSICIAN Student in an Organized Health Care Education/Training Program; CONSULT PHYSICIAN Orthopaedic Surgery; EMERGENCY PHYSICIAN Student in an Organized Health Care Education/Training Program
PROC: 0QH734Z Insertion of Internal Fixation Device into Left Upper Femur, Percutaneous Approach (ICD-10-PCS; 2025-05-24)
DX: S72.012A Unspecified intracapsular fracture of left femur, initial encounter for closed fracture (principal); W18.30XA Fall on same level, unspecified, initial encounter; D72.829 Elevated white blood cell count, unspecified; R09.02 Hypoxemia; F32.A Depression, unspecified; I10 Essential (primary) hypertension; R30.0 Dysuria; J43.2 Centrilobular emphysema; K21.9 Gastro-esophageal reflux disease without esophagitis; L71.9 Rosacea, unspecified; Z79.899 Other long term (current) drug therapy; Z79.51 Long term (current) use of inhaled steroids; Z87.891 Personal history of nicotine dependence
CPT/HCPCS: 71045; 73502; 73700; 76000; 80048; 81003; 81015; 82306; 83735; 85025; 85027; 96374; 97116; 97163; 97167; 97530; 99285; C1713; C1769